=== PATIENT | female | born 1970 | race Caucasian/White ===

== ENCOUNTER 2017-06-01 02:02 | Emergency (ER) | payer OTHER ==
[2017-06-01 02:13] VITALS: BP 142/81; PULSE 65; TEMP 97.5; BMI 31.3
--- NOTE | 2017-06-01 02:47 | PDOC ---
History of Present Illness - General Chief Complaint: Allergic Reaction Stated Complaint: ALLERGIC REACTION Time Seen by Provider: 06/01/17 02:31 History Source: Patient Exam Limitations: No Limitations - History of Present Illness Initial Comments: 06/01/17 02:45 46-year-old female with no medical history presents to the emergency department complaining of nasal congestion and rhinorrhea after taking Pepto-Bismol this evening. Patient states she was hyperventilating on arrival to the emergency department because she was nervous, thinking she is having a ALLERGIC reaction. Patient denies fever, chills, nausea/vomiting, difficulty breathing, throat closing, swollen tongue, chest pain, abdominal pains area. Patient states on arrival to the emergency department she feels better. Timing/Duration: reports: just prior to arrival Possible Cause: Yes: no prior episodes Past History - Past Medical History Allergies/Adverse Reactions: Allergies Allergy/AdvReac Type Severity Reaction Status Date / Time No Known Allergies Allergy Verified 06/01/17 02:07 Home Medications: Ambulatory Orders No Home Medications 0 dose .ROUTE UTDICT 02/25/14 Other medical history: denies - Suicide/Smoking/Psychosocial Hx Smoking History: Never smoked Review of Systems - Review of Systems Able to Perform ROS?: Yes Comments:: 06/01/17 02:45 CONSTITUTIONAL: Absent: fever, chills, diaphoresis, generalized weakness, malaise, loss of appetite HEENT: +rhinorrhea, nasal congestion Absent: throat pain, throat swelling, difficulty swallowing, mouth swelling, ear pain, eye pain, visual Changes CARDIOVASCULAR: Absent: chest pain, loss of consciousness, palpitations, irregular heart rate, peripheral edema RESPIRATORY: Absent: cough, shortness of breath, dyspnea with exertion, orthopnea, wheezing, stridor, hemoptysis GASTROINTESTINAL: Absent: abdominal pain, abdominal distension, nausea, vomiting, diarrhea, constipation, melena, hematochezia GENITOURINARY: Absent: dysuria, frequency, urgency, hesitancy, hematuria, flank pain, genital pain MUSCULOSKELETAL: Absent: myalgia, arthralgia, joint swelling SKIN: Absent: rash, itching, pallor HEMATOLOGIC/IMMUNOLOGIC: Absent: easy bleeding, easy bruising, lymphadenopathy, frequent infections ENDOCRINE: Absent: unexplained weight gain, unexplained weight loss, heat intolerance, cold intolerance NEUROLOGIC: Absent: headache, focal weakness or paresthesias, dizziness, unsteady gait, seizure, mental status changes, bladder or bowel incontinence PSYCHIATRIC: Absent: anxiety, depression, suicidal or homicidal ideation, hallucinations. Is the patient limited Mongolian proficient: No *Physical Exam - Vital Signs Last Vital Signs Temp Pulse Resp BP Pulse Ox 97.5 F L 65 18 142/81 99 06/01/17 02:05 06/01/17 02:05 06/01/17 02:05 06/01/17 02:05 06/01/17 02:05 - Physical Exam Comments: 06/01/17 02:45 GENERAL: Well developed, well nourished. Awake and alert. No acute distress. HEENT: Normocephalic, atraumatic. PERRLA, EOMI. No conjunctival pallor. Sclera are non- icteric. Moist mucous membranes. Oropharynx is clear. NECK: Supple. Full ROM. No JVD. Carotid pulses 2+ and symmetric, without bruits. No thyromegaly. No lymphadenopathy. CARDIOVASCULAR: Regular rate and rhythm. No murmurs, rubs, or gallops. Distal pulses are 2+ and symmetric. PULMONARY: No evidence of respiratory distress. Lungs clear to auscultation bilaterally. No wheezing, rales or rhonchi. ABDOMINAL: Soft. Non-tender. Non-distended. No rebound or guarding. No organomegaly. Normoactive bowel sounds. MUSCULOSKELETAL Normal range of motion at all joints. No bony deformities or tenderness. No CVA tenderness. EXTREMITIES: No cyanosis. No clubbing. No edema. No calf tenderness. SKIN: Warm and dry. Normal capillary refill. No rashes. No jaundice. NEUROLOGICAL: Alert, awake, appropriate. Cranial nerves 2-12 intact. No deficits to light touch and temperature in face, upper extremities and lower extremities. No motor deficits in the in face, upper extremities and lower extremities. Normoreflexic in the upper and lower extremities. Normal speech. Toes are down- going bilaterally. Gait is normal without ataxia. PSYCHIATRIC: Cooperative. Good eye contact. Appropriate mood and affect. Progress Note - Progress Note Progress Note: Patient insists on being discharged because she feels better. Patient was informed to stay in the emergency department for monitoring and reevaluation's but she adamantly refuses. Patient states she will return back to the ER if needed. *DC/Admit/Observation/Transfer Diagnosis at time of Disposition: Allergic reaction Qualifiers: Encounter type: initial encounter Qualified Code(s): T78.40XA - Allergy, unspecified, initial encounter; T78.40XA - Allergy, unspecified, initial encounter - Discharge Dispostion Disposition: AGAINST MEDICAL ADVICE Condition at time of disposition: Stable Admit: No - Patient Instructions Printed Discharge Instructions: DI for Adverse Drug Reaction -- Allergic Additional Instructions: Benadryl Increase fluids You were advised to stay in the emergency department for monitoring and reevaluation's but you insists that you feel better and wishes to be discharged. Please return to the emergency department for severe/persistent or worsening symptoms, shortness of breath.
== END 2017-06-01 04:27 | disposition left against medical advice (07) ==
LOC: JER 02:02
DX: J34.89 Other specified disorders of nose and nasal sinuses (principal); T47.6X5A Adverse effect of antidiarrheal drugs, initial encounter; Y92.038 Other place in apartment as the place of occurrence of the external cause
CPT/HCPCS: 99281-25